=== PATIENT | female | born 1955 | race Caucasian/White ===

== ENCOUNTER → 2023-10-23 | Day surgery (SDC) | payer MEDICARE, BC ==
[~2023-10-23] VITALS: Ht 162.6 cm; Wt 68.0 kg
[~2023-10-23] MED LIST: CALC-1139 PO; CHOL1CAP6 PO; CHOL500010 PO; GREE150C PO; HYDROMORPHONE HCL/PF 2MG/ML CPJ IV PRN; LABETALOL 5MG/ML 4ML INJ IV PRN; LACT1CAP78 PO; MAGN100T PO; MEAL REPLACEMENT PO; MEPERIDINE HCL/PF 25MG/ML CPJ IV PRN; MULT-1116 PO; ONDANSETRON HCL 4MG/2ML INJ IV PRN; PSYL0.4C2 PO; PSYL575P22 PO; SACC250C9 PO
[2023-10-23] MEDS: LACTATED RINGERS 1,000 ML IV SCH (09:44)
== END | disposition home or self-care (01) ==
LOC: OR 08:47
PROVIDERS: ATTEND Internal Medicine Gastroenterology
DX: Z12.11 Encounter for screening for malignant neoplasm of colon (principal); K57.30 Diverticulosis of large intestine without perforation or abscess without bleeding; K64.8 Other hemorrhoids; Z86.010 Personal history of colon polyps; Z90.710 Acquired absence of both cervix and uterus; Z98.51 Tubal ligation status; Z98.890 Other specified postprocedural states; Z79.899 Other long term (current) drug therapy; Z88.0 Allergy status to penicillin; Z88.8 Allergy status to other drugs, medicaments and biological substances
CPT/HCPCS: 93005; G0105